=== PATIENT | female | born 1995 | race Caucasian/White ===

== ENCOUNTER 2024-02-06 11:24 | Outpatient (CLI) | payer OTHER | END 2024-02-06 11:25 | disposition home or self-care (01) | LOC: CSHULT 11:24 | PROVIDERS: ATTEND Nurse Practitioner Family | DX: E05.90 Thyrotoxicosis, unspecified without thyrotoxic crisis or storm (principal); E04.9 Nontoxic goiter, unspecified | CPT/HCPCS: 76536 ==